=== PATIENT | male | born 1960 | race Caucasian/White ===

== ENCOUNTER 2018-06-09 18:39 | Inpatient (IN) | payer OTHER ==
--- NOTE | 2018-06-09 20:00 | EDM.PDOC ---
ED HPI GENERAL MEDICAL PROBLEM - General Chief Complaint: Lower Extremity Injury/Pain Stated Complaint: right hip pain Time Seen by Provider: 06/09/18 19:05 Source of Information: Reports: Patient History Limitations: Reports: No Limitations - History of Present Illness INITIAL COMMENTS - FREE TEXT/NARRATIVE: Pt presents from basic care with pain in right hip Bent over to put on his shoe and felt a snap and increased pain Had fallen about a month ago and was seen in ER then but Xrays negative then No new trauma No other complaints Onset: Today, Sudden Duration: Hour(s):, Constant Location: Reports: Lower Extremity, Right Quality: Reports: Sharp Severity: Moderate Worsens with: Reports: Movement Context: Reports: Activity Associated Symptoms: Reports: No Other Symptoms Treatments FERRULER: Reports: Other (see below) Other Treatments FERRULER: hydrocodone 10 mg, gabapenting 600mg and ibuprofen 400mg. - Related Data Allergies Allergy/AdvReac Type Severity Reaction Status Date / Time levofloxacin [From Levaquin] Allergy Liver Verified 06/09/18 18:46 Problems Home Meds: Home Meds Calcium Carbonate [Antacid Extra Strength] 750 mg PO BID PRN 06/09/18 [History] Cyclobenzaprine HCl 10 mg PO BID PRN 06/09/18 [History] Gabapentin [Neurontin] 300 mg PO TID@00,06,12 06/09/18 [History] Gabapentin [Neurontin] 600 mg PO DAILY@18 06/09/18 [History] Hydrocodone/Acetaminophen [Hydrocodon-Acetaminophn 10-325] 1 tab PO Q6HRRT 06/09 [History] Ibuprofen [Motrin] 400 mg PO DAILY PRN 06/09/18 [History] Lidocaine 5% [Lidoderm 5%] 1 - 2 patch TOP DAILY PRN 06/09/18 [History] Lisinopril 10 mg PO BID 06/09/18 [History] Menthol [[place]] 7.5 mg MM ASDIRECTED PRN 06/09/18 [History] Multivit with Calcium,Iron,Min [Essential Daily] 1 each PO DAILY 06/09/18 [ History] Polyvinyl Alcohol [Liquitears] 1 drop EYEBOTH QID PRN 06/09/18 [History] Pseudoephedrine HCl [Sudafed] 30 mg PO BID PRN 06/09/18 [History] Simvastatin [Zocor] 10 mg PO DAILY 06/09/18 [History] Review of Systems - Review of Systems Review Of Systems: See Below Mouth/Throat: Reports: No Symptoms Respiratory: Reports: No Symptoms Cardiovascular: Reports: No Symptoms GI/Abdominal: Reports: No Symptoms Musculoskeletal: Reports: Joint Pain ED EXAM, GENERAL - Physical Exam Exam: See Below Exam Limited By: No Limitations General Appearance: Alert, Moderate Distress Nose: Normal Inspection Throat/Mouth: Normal Inspection Head: Atraumatic Neck: Supple Respiratory/Chest: Lungs Clear, Chest Non-Tender Cardiovascular: Regular Rate, Rhythm GI/Abdominal: Soft, Non-Tender Extremities: Other (pain in right hip with palpation or movement) Neurological: Alert, Oriented Psychiatric: Normal Affect, Normal Mood Skin Exam: Intact Course - Vital Signs Last Recorded V/S: Last Vital Signs Temp 37.2 C 06/09/18 18:45 Pulse 84 06/09/18 18:45 Resp 20 06/09/18 18:45 BP 139/83 06/09/18 18:45 Pulse Ox 95 06/09/18 18:45 - Orders/Labs/Meds Orders: Active Orders 24 hr Category Date Time Status Hip Min 2V or 3V w Pelvis Rt [CR] Stat Exams 06/09/18 19:05 Taken - Re-Assessments/Exams Free Text/Narrative Re-Assessment/Exam: 06/09/18 20:02 Xray with non-displaced femoral neck fracture on right D/W [facility] Unable to transfer due to weather Will admit Departure - Departure Time of Disposition: 20:15 Disposition: Admitted As Inpatient 64 Clinical Impression: Fracture of neck of femur, hip - Discharge Information *PRESCRIPTION DRUG MONITORING PROGRAM REVIEWED*: Not Applicable *COPY OF PRESCRIPTION DRUG MONITORING REPORT IN PATIENT KYLE: Not Applicable Referrals: Sheets-Bettye Torrez MD [Primary Care Provider] - - Problem List & Annotations (1) Closed right hip fracture SNOMED Code(s): 685379078 Code(s): S72.001A - FRACTURE OF UNSP PART OF NECK OF RIGHT FEMUR, INIT Status: Acute Onset Date: ~06/09/18 Qualifiers: Encounter type: initial encounter Qualified Code(s): S72.001A - Fracture of unspecified part of neck of right femur, initial encounter for closed fracture - Problem List Review Problem List Initiated/Reviewed/Updated: Yes - My Orders Last 24 Hours: My Active Orders 06/09/18 19:05 Hip Min 2V or 3V w Pelvis Rt [CR] Stat - Assessment/Plan Admission H&P: Please use this note as an admission H&P Last 24 Hours: My Active Orders 06/09/18 19:05 Hip Min 2V or 3V w Pelvis Rt [CR] Stat Assessment:: Right hip fracture Plan: Admit to acute
[2018-06-09] MEDS ORDERED: Ondansetron 4 MG Tab.DIS PO PRN (20:13)
[2018-06-09] MEDS ORDERED: Lidocaine 5% 700 MG Patch TOP PRN (20:21)
[2018-06-09] MEDS ORDERED: Aluminum Hydroxide/Magnesium Hydroxide/Simethicone 355 ML Bottle PO PRN (20:21)
[2018-06-09] MEDS ORDERED: Cyclobenzaprine 10 MG Tab PO PRN (20:21)
[2018-06-09] MEDS ORDERED: Polyvinyl Alcohol 1.4% Ophth Soln 15 ML Bottle EYEBOTH PRN (20:21)
[2018-06-09] MEDS ORDERED: Bisacodyl 5 MG Tab PO PRN (20:21)
[2018-06-09] MEDS ORDERED: Calcium Carbonate 750 MG Tab.Chew PO PRN (20:21)
[2018-06-09] MEDS: Nicotine 21 MG/24 Hr Patch TRDERM SCH (21:37)
[2018-06-09] MEDS: Morphine 2 MG/ML Syringe IVPUSH PRN (21:38)
[2018-06-09] MEDS: Sodium Chloride 0.9% 10 ML Syringe FLUSH PRN (21:49)
[2018-06-10] MEDS: Gabapentin 300 MG Cap PO SCH ×2 (00:09→06:40)
[2018-06-10] MEDS: Acetaminophen/HYDROcodone 325-10 MG Tab PO SCH ×2 (00:09→06:39)
[2018-06-10 03:38] LABS: CHLORIDE,CL 101 mmol/L (98-107); SODIUM,NA 139 mmol/L (136-145)
[2018-06-10] MEDS: Morphine 2 MG/ML Syringe IVPUSH PRN ×2 (04:13→11:42)
[2018-06-10] MEDS: Sodium Chloride 0.9% 10 ML Syringe FLUSH PRN (04:13)
[2018-06-10] MEDS ORDERED: Simvastatin 10 MG Tab PO SCH (08:00)
[2018-06-10] MEDS ORDERED: Metoprolol Tartrate 25 MG Tab PO SCH (08:00)
[2018-06-10] MEDS ORDERED: Lisinopril 10 MG Tab PO SCH (08:00)
[2018-06-10] MEDS ORDERED: Multivitamins with Iron and Minerals Tab.Chew PO SCH (08:00)
[2018-06-10] MEDS: Nicotine 21 MG/24 Hr Patch TRDERM SCH (08:08)
[2018-06-10] MEDS ORDERED: Lactated Ringers 1,000 ML IV SCH (15:30)
[2018-06-10] MEDS ORDERED: Gabapentin 300 MG Cap PO SCH (18:00)
--- NOTE | 2018-06-10 18:22 | PCM.PN ---
- General Info Date of Service: 06/10/18 Functional Status: Reports: Pain Controlled - Review of Systems General: Reports: No Symptoms HEENT: Reports: No Symptoms Pulmonary: Reports: No Symptoms Cardiovascular: Reports: No Symptoms Gastrointestinal: Reports: No Symptoms Genitourinary: Reports: No Symptoms Musculoskeletal: Reports: Joint Pain (right hip) Skin: Reports: No Symptoms Neurological: Reports: Tingling (right leg) Psychiatric: Reports: No Symptoms - Patient Data Vitals - Most Recent: Last Vital Signs Temp 97.8 F 06/10/18 14:00 Pulse 74 06/10/18 14:00 Resp 16 06/10/18 14:00 BP 117/77 06/10/18 14:00 Pulse Ox 94 L 06/10/18 14:00 Weight - Most Recent: 251 lb 6.395 oz I&O - Last 24 Hours: Intake & Output 06/10/18 06/10/18 06/10/18 06:59 14:59 22:59 Intake Total 600 Output Total 1250 600 Balance -1250 0 Lab Results Last 24 Hours: Laboratory Results - last 24 hr 06/10/18 06/10/18 06/10/18 Range/Units 03:15 03:15 03:15 WBC 11.0 H (4.0-10.2) K/uL RBC 4.69 (4.33-5.41) M/uL Hgb 15.1 (13.1-16.8) g/dL Hct 44.4 (39.0-49.0) % MCV 94.7 (84.0-98.0) fL MCH 32.2 (28.2-33.3) pg MCHC 34.0 (31.7-36.0) g/dL RDW 12.4 (11.2-14.1) % Plt Count 216 (150-350) K/uL Neut % (Auto) 62.0 (45.0-80.0) % Lymph % (Auto) 22.7 (10.0-50.0) % [place] % (Auto) 13.3 (2.0-14.0) % Eos % (Auto) 1.6 (0.0-5.0) % Baso % (Auto) 0.4 (0.0-2.0) % Neut # (Auto) 6.82 (1.40-7.00) K/uL Lymph # (Auto) 2.49 (0.50-3.50) K/uL [place] # (Auto) 1.46 H (0.00-1.00) K/uL Eos # (Auto) 0.18 (0.00-0.50) K/uL Baso # (Auto) 0.04 (0.00-0.20) K/uL PT 10.8 (9.5-12.0) SEC INR 1.0 Sodium 139 (136-145) mmol/L Potassium 4.6 (3.5-5.1) mmol/L Chloride 101 (98-107) mmol/L Carbon Dioxide 31.7 (21.0-32.0) mmol/L BUN 19 H (7-18) mg/dL Creatinine 0.73 (0.51-1.17) mg/dL Est Cr Clr Drug Dosing 119.59 mL/min Estimated GFR (MDRD) > 60 mL/min Glucose 113 H (74-106) mg/dL Calcium 8.8 (8.5-10.1) mg/dL Total Bilirubin 0.5 (0.2-1.0) mg/dL AST 17 (15-37) U/L ALT 48 (12-78) U/L Alkaline Phosphatase 104 (46-116) IU/L Total Protein 6.3 L (6.4-8.2) g/dL Albumin 3.5 (3.4-5.0) g/dL Med Orders - Current: Current Medications Discontinued Medications Hydrocodone Bitart/Acetaminophen ([place] 325-10 Mg) 1 tab PO Q6H [facility] Last Admin: 06/10/18 06:39 Dose: 1 tab Al Hydroxide/Mg Hydroxide (Maalox Advanced) 15 - 20 ml PO Q6H PRN PRN Reason: Heartburn Artificial Tears (Liquitears 1.4% Ophth Soln) 0 ml EYEBOTH QID PRN PRN Reason: Dry Eyes Bisacodyl (Dulcolax) 1 - 2 mg PO DAILY PRN PRN Reason: Constipation Calcium Carbonate/Glycine (Tums Extra Strength) 750 mg PO BID PRN PRN Reason: Heartburn Cyclobenzaprine HCl (Flexeril) 10 mg PO BID PRN PRN Reason: Muscle Spasm Last Admin: 06/10/18 00:08 Dose: 10 mg Gabapentin (Neurontin) 300 mg PO TID@00,06,12 [facility] Last Admin: 06/10/18 06:40 Dose: 300 mg Gabapentin (Neurontin) 600 mg PO DAILY@18 [facility] Lactated Ringer's (Ringers, Lactated) 1,000 mls @ 100 mls/hr IV ASDIRECTED [facility] Last Admin: 06/10/18 15:30 Dose: 100 mls/hr Lidocaine (Lidoderm 5%) 700 mg TOP DAILY PRN PRN Reason: Pain Lisinopril (Prinivil) 10 mg PO BID [facility] Last Admin: 06/10/18 08:06 Dose: 10 mg Metoprolol Tartrate (Lopressor) 25 mg PO Q12HR [facility] Last Admin: 06/10/18 08:07 Dose: 25 mg Morphine Sulfate (Morphine) 2 mg IVPUSH Q2H PRN PRN Reason: Pain (severe 7-10) Last Admin: 06/10/18 11:42 Dose: 2 mg Multivitamins/Folic Acid/Vitamin C (Cerovite Jr) 1 each PO DAILY [facility] Last Admin: 06/10/18 08:07 Dose: 1 each Nicotine (Habitrol) 21 mg TRDERM DAILY [facility] Last Admin: 06/10/18 08:08 Dose: 21 mg Ondansetron HCl (Zofran Odt) 8 mg PO Q6H PRN PRN Reason: Nausea/Vomiting Last Admin: 06/09/18 21:37 Dose: 8 mg Senna/Docusate Sodium (Senna Plus) 1 - 2 tab PO DAILY PRN PRN Reason: Constipation Simvastatin (Zocor) 10 mg PO DAILY [facility] Last Admin: 06/10/18 08:06 Dose: 10 mg Sodium Chloride (Saline Flush) 10 ml FLUSH ASDIRECTED PRN PRN Reason: Keep Vein Open Last Admin: 06/10/18 04:13 Dose: 10 ml Sodium Chloride (Saline Flush) 10 ml FLUSH Q12HR [facility] Last Admin: 06/10/18 11:42 Dose: 10 ml - Exam General: Alert, No Acute Distress HEENT: Mucous Membr. Moist/[place] Neck: Trachea Midline, No JVD Lungs: Normal Respiratory Effort, Decreased Breath Sounds Cardiovascular: Regular Rate, Regular Rhythm GI/Abdominal Exam: Soft, Non-Tender, No Distention (Male) Exam: Deferred Back Exam: Normal Inspection Extremities: No Pedal Edema, Leg Pain (right hip and right thigh) Skin: Warm, Dry, Intact Neurological: No New Focal Deficit Psy/Mental Status: Alert, Normal Affect, Normal Mood - Problem List & Annotations (1) Fracture of neck of femur, hip SNOMED Code(s): 6340710 Code(s): S72.009A - FRACTURE OF UNSP PART OF NECK OF UNSP FEMUR, INIT Status: Acute (2) Closed right hip fracture SNOMED Code(s): 110020090 Code(s): S72.001A - FRACTURE OF UNSP PART OF NECK OF RIGHT FEMUR, INIT Status: Acute Onset Date: ~06/09/18 Qualifiers: Encounter type: initial encounter Qualified Code(s): S72.001A - Fracture of unspecified part of neck of right femur, initial encounter for closed fracture (3) Tobacco abuse SNOMED Code(s): 701745801 Code(s): Z72.0 - TOBACCO USE Status: Acute Priority: High (4) Hypertension SNOMED Code(s): 22268952 Code(s): I10 - ESSENTIAL (PRIMARY) HYPERTENSION Status: Acute Qualifiers: Hypertension type: essential hypertension Qualified Code(s): I10 - Essential (primary) hypertension (5) Neuropathy SNOMED Code(s): 124073729 Code(s): G62.9 - POLYNEUROPATHY, UNSPECIFIED Status: Acute Priority: Low (6) Hyperlipemia SNOMED Code(s): 41771817 Code(s): E78.5 - HYPERLIPIDEMIA, UNSPECIFIED Status: Acute Qualifiers: Hyperlipidemia type: other hyperlipidemia Qualified Code(s): E78.49 - Other hyperlipidemia; E78.4 - Other hyperlipidemia - Problem List Review Problem List Initiated/Reviewed/Updated: Yes - My Orders Last 24 Hours: My Active Orders 06/10/18 15:15 Ready for Discharge [RC] PER UNIT ROUTINE - Plan Plan:: 06/10/18 Merlyn Torrez MD Call from nurse at ~10:45. [facility] personnel called to state they would not accept Mr. Piña to the [facility] today because they do not have emergency orthopedic services today. ~11:05 call to [facility]. She will call me back when she has hospitalist on the line. ~11:21 [facility] call and talked to Dr. Hayes who agrees to accept the patient. [facility] will call back and talk to nurses station when a bed is available.
[2018-06-10] MEDS ORDERED: Sodium Chloride 0.9% 10 ML Syringe FLUSH SCH (20:00)
--- NOTE | 2018-06-10 22:53 | PCM.DCSUM1 ---
Discharge Summary - Hospital Course Diagnosis: Stroke: No - Discharge Data Discharge Date: 06/10/18 Discharge Disposition: DC/Tfer to Acute Hospital 02 Condition: Good - Discharge Diagnosis/Problem(s) (1) Fracture of neck of femur, hip SNOMED Code(s): 6768389 ICD Code: S72.009A - FRACTURE OF UNSP PART OF NECK OF UNSP FEMUR, INIT Status: Acute (2) Closed right hip fracture SNOMED Code(s): 672882267 ICD Code: S72.001A - FRACTURE OF UNSP PART OF NECK OF RIGHT FEMUR, INIT Status: Acute Onset Date: ~06/09/18 Qualifiers: Encounter type: initial encounter Qualified Code(s): S72.001A - Fracture of unspecified part of neck of right femur, initial encounter for closed fracture (3) Tobacco abuse SNOMED Code(s): 786610494 ICD Code: Z72.0 - TOBACCO USE Status: Acute Priority: High (4) Hypertension SNOMED Code(s): 92088358 ICD Code: I10 - ESSENTIAL (PRIMARY) HYPERTENSION Status: Acute Qualifiers: Hypertension type: essential hypertension Qualified Code(s): I10 - Essential (primary) hypertension (5) Neuropathy SNOMED Code(s): 881453025 ICD Code: G62.9 - POLYNEUROPATHY, UNSPECIFIED Status: Acute Priority: Low (6) Hyperlipemia SNOMED Code(s): 73041077 ICD Code: E78.5 - HYPERLIPIDEMIA, UNSPECIFIED Status: Acute Qualifiers: Hyperlipidemia type: other hyperlipidemia Qualified Code(s): E78.49 - Other hyperlipidemia; E78.4 - Other hyperlipidemia - Patient Instructions Diet: NPO Activity: Bedrest, May Use Bathroom, Non Weight Bearing Driving: Do Not Drive Showering/Bathing: May Shower Other/Special Instructions: He has been accepted to [facility]. - Discharge Plan *PRESCRIPTION DRUG MONITORING PROGRAM REVIEWED*: Not Applicable *COPY OF PRESCRIPTION DRUG MONITORING REPORT IN PATIENT KYLE: Not Applicable Home Medications: Home Meds Bisacodyl 10 mg RC DAILY PRN 06/09/18 [History] Bisacodyl [Correctol] 1 - 2 tab PO DAILY PRN 06/09/18 [History] Calcium Carbonate [Antacid Extra Strength] 750 mg PO BID PRN 06/09/18 [History] Cyclobenzaprine HCl 10 mg PO BID PRN 06/09/18 [History] Gabapentin [Neurontin] 300 mg PO TID@00,06,12 06/09/18 [History] Gabapentin [Neurontin] 600 mg PO DAILY@18 06/09/18 [History] Hydrocodone/Acetaminophen [Hydrocodon-Acetaminophn 10-325] 1 tab PO Q6HRRT 06/09 [History] Ibuprofen 400 mg PO BID@0600,1800 06/09/18 [History] Ibuprofen [Motrin] 400 mg PO DAILY PRN 06/09/18 [History] Lidocaine 5% [Lidoderm 5%] 1 - 2 patch TOP DAILY PRN 06/09/18 [History] Lisinopril 10 mg PO BID@0600,1800 06/09/18 [History] Mag Hydrox/Aluminum Hyd/Simeth [Antacid Liquid] 15 - 20 ml PO Q6H PRN 06/09/18 [ History] Menthol [Pace] 7.5 mg MM ASDIRECTED PRN 06/09/18 [History] Metoprolol Tartrate [Lopressor] 25 mg PO BID@0600,1800 06/09/18 [History] Multivit with Calcium,Iron,Min [Essential Daily] 1 each PO DAILY@0600 06/09/18 [ History] Polyvinyl Alcohol [Liquitears] 1 drop EYEBOTH QID PRN 06/09/18 [History] Pseudoephedrine HCl [Sudafed] 30 mg PO BID PRN 06/09/18 [History] Sennosides/Docusate Sodium [Dok Plus Tablet] 1 - 2 each PO DAILY PRN 06/09/18 [ History] Simvastatin [Zocor] 10 mg PO DAILY@1800 06/09/18 [History] Oxygen Therapy Mode: Room Air Patient Handouts: Simple Pelvic Fracture, Adult Forms: ED Department Discharge Referrals: Sheets-Bettye Torrez MD [Primary Care Provider] - - Discharge Summary/Plan Comment DC Time >30 min.: No Discharge Summary/Plan Comment: See progress note summary. - Patient Data Vitals - Most Recent: Last Vital Signs Temp 97.8 F 06/10/18 14:00 Pulse 74 06/10/18 14:00 Resp 16 06/10/18 14:00 BP 117/77 06/10/18 14:00 Pulse Ox 94 L 06/10/18 14:00 Weight - Most Recent: 251 lb 6.395 oz I&O - Last 24 hours: Intake & Output 06/10/18 06/10/18 06/10/18 06:59 14:59 22:59 Intake Total 600 Output Total 1250 600 Balance -1250 0 Lab Results - Last 24 hrs: Laboratory Results - last 24 hr 06/10/18 06/10/18 06/10/18 Range/Units 03:15 03:15 03:15 WBC 11.0 H (4.0-10.2) K/uL RBC 4.69 (4.33-5.41) M/uL Hgb 15.1 (13.1-16.8) g/dL Hct 44.4 (39.0-49.0) % MCV 94.7 (84.0-98.0) fL MCH 32.2 (28.2-33.3) pg MCHC 34.0 (31.7-36.0) g/dL RDW 12.4 (11.2-14.1) % Plt Count 216 (150-350) K/uL Neut % (Auto) 62.0 (45.0-80.0) % Lymph % (Auto) 22.7 (10.0-50.0) % [place] % (Auto) 13.3 (2.0-14.0) % Eos % (Auto) 1.6 (0.0-5.0) % Baso % (Auto) 0.4 (0.0-2.0) % Neut # (Auto) 6.82 (1.40-7.00) K/uL Lymph # (Auto) 2.49 (0.50-3.50) K/uL [place] # (Auto) 1.46 H (0.00-1.00) K/uL Eos # (Auto) 0.18 (0.00-0.50) K/uL Baso # (Auto) 0.04 (0.00-0.20) K/uL PT 10.8 (9.5-12.0) SEC INR 1.0 Sodium 139 (136-145) mmol/L Potassium 4.6 (3.5-5.1) mmol/L Chloride 101 (98-107) mmol/L Carbon Dioxide 31.7 (21.0-32.0) mmol/L BUN 19 H (7-18) mg/dL Creatinine 0.73 (0.51-1.17) mg/dL Est Cr Clr Drug Dosing 119.59 mL/min Estimated GFR (MDRD) > 60 mL/min Glucose 113 H (74-106) mg/dL Calcium 8.8 (8.5-10.1) mg/dL Total Bilirubin 0.5 (0.2-1.0) mg/dL AST 17 (15-37) U/L ALT 48 (12-78) U/L Alkaline Phosphatase 104 (46-116) IU/L Total Protein 6.3 L (6.4-8.2) g/dL Albumin 3.5 (3.4-5.0) g/dL Med Orders - Current: Current Medications Discontinued Medications Hydrocodone Bitart/Acetaminophen ([place] 325-10 Mg) 1 tab PO Q6H [facility] Last Admin: 06/10/18 06:39 Dose: 1 tab Al Hydroxide/Mg Hydroxide (Maalox Advanced) 15 - 20 ml PO Q6H PRN PRN Reason: Heartburn Artificial Tears (Liquitears 1.4% Ophth Soln) 0 ml EYEBOTH QID PRN PRN Reason: Dry Eyes Bisacodyl (Dulcolax) 1 - 2 mg PO DAILY PRN PRN Reason: Constipation Calcium Carbonate/Glycine (Tums Extra Strength) 750 mg PO BID PRN PRN Reason: Heartburn Cyclobenzaprine HCl (Flexeril) 10 mg PO BID PRN PRN Reason: Muscle Spasm Last Admin: 06/10/18 00:08 Dose: 10 mg Gabapentin (Neurontin) 300 mg PO TID@00,06,12 [facility] Last Admin: 06/10/18 06:40 Dose: 300 mg Gabapentin (Neurontin) 600 mg PO DAILY@18 [facility] Lactated Ringer's (Ringers, Lactated) 1,000 mls @ 100 mls/hr IV ASDIRECTED [facility] Last Admin: 06/10/18 15:30 Dose: 100 mls/hr Lidocaine (Lidoderm 5%) 700 mg TOP DAILY PRN PRN Reason: Pain Lisinopril (Prinivil) 10 mg PO BID [facility] Last Admin: 06/10/18 08:06 Dose: 10 mg Metoprolol Tartrate (Lopressor) 25 mg PO Q12HR [facility] Last Admin: 06/10/18 08:07 Dose: 25 mg Morphine Sulfate (Morphine) 2 mg IVPUSH Q2H PRN PRN Reason: Pain (severe 7-10) Last Admin: 06/10/18 11:42 Dose: 2 mg Multivitamins/Folic Acid/Vitamin C (Cerovite Jr) 1 each PO DAILY [facility] Last Admin: 06/10/18 08:07 Dose: 1 each Nicotine (Habitrol) 21 mg TRDERM DAILY [facility] Last Admin: 06/10/18 08:08 Dose: 21 mg Ondansetron HCl (Zofran Odt) 8 mg PO Q6H PRN PRN Reason: Nausea/Vomiting Last Admin: 06/09/18 21:37 Dose: 8 mg Senna/Docusate Sodium (Senna Plus) 1 - 2 tab PO DAILY PRN PRN Reason: Constipation Simvastatin (Zocor) 10 mg PO DAILY [facility] Last Admin: 06/10/18 08:06 Dose: 10 mg Sodium Chloride (Saline Flush) 10 ml FLUSH ASDIRECTED PRN PRN Reason: Keep Vein Open Last Admin: 06/10/18 04:13 Dose: 10 ml Sodium Chloride (Saline Flush) 10 ml FLUSH Q12HR [facility] Last Admin: 06/10/18 11:42 Dose: 10 ml
== END 2018-06-10 16:07 | DRG 536 ==
LOC: LL.ED 18:39 → LL.MS 20:05 → UNDOADMIN 20:05 → LL.MS 20:13
PROVIDERS: ADMIT Family Medicine; ATTEND Family Medicine
DX: S72.001A Fracture of unspecified part of neck of right femur, initial encounter for closed fracture (principal); I10 Essential (primary) hypertension; E78.49 Other hyperlipidemia; Z66 Do not resuscitate; G62.9 Polyneuropathy, unspecified; Z88.1 Allergy status to other antibiotic agents; Z79.899 Other long term (current) drug therapy; Z72.0 Tobacco use; W18.30XA Fall on same level, unspecified, initial encounter
CPT/HCPCS: 36415; 80053; 85025; 85610; 99285-25; A9270-GY; J2270; J7120

== ENCOUNTER 2020-04-06 16:31 | Emergency (ER) | payer OTHER ==
[2020-04-06 16:59] LABS: CHLORIDE,CL 100 mmol/L (98-107); SODIUM,NA 141 mmol/L (136-145)
[2020-04-06] MEDS ORDERED: cefTRIAXone 1 GM Vial IM ONE (17:21)
[2020-04-06] MEDS ORDERED: methylPREDNISolone Sodium Succinate 125 MG/2 ML SDV IM ONE (17:21)
--- NOTE | 2020-04-06 17:31 | EDM.PDOC ---
ED HPI GENERAL MEDICAL PROBLEM - General Chief Complaint: Respiratory Problem Stated Complaint: Cough, Shortness of breath Time Seen by Provider: 04/06/20 16:32 Source of Information: Reports: Patient, [facility] Records - History of Present Illness INITIAL COMMENTS - FREE TEXT/NARRATIVE: Pt with increased SOB for past week No fever Negative Covid test yesterday No chest pain Occasional cough RA sats at [facility] 87% EMS states sats 93% on 2 L oxygen 97% on 4 L Onset: Gradual Duration: Day(s):, Getting Worse Location: Reports: Chest - Related Data Allergies Allergy/AdvReac Type Severity Reaction Status Date / Time levofloxacin [From Levaquin] Allergy Liver Verified 06/09/18 18:46 Problems Home Meds: Home Meds Calcium Carbonate [Antacid Extra Strength] 750 mg PO BID PRN 06/09/18 [History] Cyclobenzaprine HCl 10 mg PO BID PRN 06/09/18 [History] Gabapentin [Neurontin] 300 mg PO TID@00,06,12 06/09/18 [History] Gabapentin [Neurontin] 600 mg PO DAILY@18 06/09/18 [History] Hydrocodone/Acetaminophen [Hydrocodon-Acetaminophn 10-325] 1 tab PO Q6HRRT 06/09/18 [History] Ibuprofen 400 mg PO BID@0600,1800 06/09/18 [History] Lidocaine 5% [Lidoderm 5%] 1 - 2 patch TOP DAILY PRN 06/09/18 [History] Mag Hydrox/Aluminum Hyd/Simeth [Antacid Liquid] 15 - 20 ml PO Q6H PRN 06/09/18 [History] Metoprolol Tartrate [Lopressor] 25 mg PO BID@0600,1800 06/09/18 [History] Multivit with Calcium,Iron,Min [Essential Daily] 1 each PO DAILY@0600 06/09/18 [History] Polyvinyl Alcohol [Liquitears] 1 drop EYEBOTH QID PRN 06/09/18 [History] Pseudoephedrine HCl [Sudafed] 30 mg PO BID PRN 06/09/18 [History] Sennosides/Docusate Sodium [Dok Plus Tablet] 1 - 2 each PO DAILY PRN 06/09/18 [History] Simvastatin [Zocor] 10 mg PO DAILY@1800 06/09/18 [History] Calcium Carbonate [Calcium] 1 tab PO DAILY@0600 04/06/20 [History] Cholecalciferol (Vitamin D3) [Vitamin D] 1,000 unit PO DAILY@0600 04/06/20 [History] Furosemide [Lasix] 40 mg PO DAILY@0604/06/20 [History] Hydrocodone/Acetaminophen [Hydrocodone-Acetamin 10-325 mg] 1 tab PO QID@00,06,12,18 04/06/20 [History] Menthol [[place]] 1 tima PO ASDIRECTED 04/06/20 [History] lisinopriL [Lisinopril] 2.5 mg PO DAILY@0604/06/20 [History] metFORMIN [Glucophage XR] 500 mg PO DAILY@1200 04/06/20 [History] polyethylene glycoL 3350 [MiraLAX] 17 gm PO DAILY PRN 04/06/20 [History] Past Medical History HEENT History: Reports: Cataract, Impaired Vision, Other (See Below) Other HEENT History: dry eyes Cardiovascular History: Reports: High Cholesterol, Hypertension Gastrointestinal History: Reports: Chronic Constipation, GERD Genitourinary History: Reports: Other (See Below) Other Genitourinary History: urinary urgency Musculoskeletal History: Reports: Back Pain, Chronic, Osteoarthritis, Other (See Below) Other Musculoskeletal History: Spondylosis Neurological History: Reports: Neuropathy, Peripheral Psychiatric History: Reports: Depression Endocrine/Metabolic History: Reports: Obesity/BMI 30+ Social & Family History - Caffeine Use Caffeine Use: Reports: Coffee ED ROS GENERAL - Review of Systems Review Of Systems: See Below Constitutional: Reports: No Symptoms HEENT: Reports: No Symptoms Respiratory: Reports: Shortness of Breath, Cough Cardiovascular: Reports: No Symptoms GI/Abdominal: Reports: No Symptoms ED EXAM, GENERAL - Physical Exam Exam: See Below Exam Limited By: No Limitations General Appearance: Alert, WD/WN, Mild Distress Throat/Mouth: Normal Oropharynx Neck: Supple Respiratory/Chest: Decreased Breath Sounds, Wheezing Cardiovascular: Regular Rate, Rhythm GI/Abdominal: Soft, Non-Tender Course - Orders/Labs/Meds Orders: Active Orders 24 hr Category Date Time Status Chest 1V Frontal [CR] Stat Exams 04/06/20 16:33 Taken Labs: Laboratory Tests 04/06/20 04/06/20 04/06/20 Range/Units 16:35 16:35 16:35 WBC 11.4 H (4.0-10.2) K/uL RBC 5.35 (4.33-5.41) M/uL Hgb 16.6 (13.1-16.8) g/dL Hct 49.4 H (39.0-49.0) % MCV 92.3 (84.0-98.0) fL MCH 31.0 (28.2-33.3) pg MCHC 33.6 (31.7-36.0) g/dL RDW 13.5 (11.2-14.1) % Plt Count 170 (150-350) K/uL Neut % (Auto) 73.7 (45.0-80.0) % Lymph % (Auto) 14.2 (10.0-50.0) % [place] % (Auto) 10.6 (2.0-14.0) % Eos % (Auto) 1.2 (0.0-5.0) % Baso % (Auto) 0.3 (0.0-2.0) % Neut # (Auto) 8.38 H (1.40-7.00) K/uL Lymph # (Auto) 1.61 (0.50-3.50) K/uL [place] # (Auto) 1.20 H (0.00-1.00) K/uL Eos # (Auto) 0.14 (0.00-0.50) K/uL Baso # (Auto) 0.03 (0.00-0.20) K/uL Sodium 141 (136-145) mmol/L Potassium 4.2 (3.5-5.1) mmol/L Chloride 100 (98-107) mmol/L Carbon Dioxide 37.2 H (21.0-32.0) mmol/L BUN 16 (7-18) mg/dL Creatinine 0.75 (0.51-1.17) mg/dL Est Cr Clr Drug Dosing TNP Estimated GFR (MDRD) > 60 mL/min Glucose 165 H (74-106) mg/dL Lactic Acid 0.9 (0.4-2.0) mmol/L Calcium 8.8 (8.5-10.1) mg/dL Total Bilirubin 0.3 (0.2-1.0) mg/dL AST 34 (15-37) U/L ALT 59 (12-78) U/L Alkaline Phosphatase 96 (46-116) IU/L Total Protein 6.8 (6.4-8.2) g/dL Albumin 3.7 (3.4-5.0) g/dL Meds: Medications Discontinued Medications Generic Name Dose Route Start Last Admin Trade Name Skyq PRN Reason Stop Dose Admin Ceftriaxone Sodium 1 gm 04/06/20 17:21 Rocephin IM 04/06/20 17:22 ONETIME ONE Methylprednisolone Sodium Succinate 125 mg 04/06/20 17:21 Solu-Medrol IM 04/06/20 17:22 ONETIME ONE - Re-Assessments/Exams Free Text/Narrative Re-Assessment/Exam: 04/06/20 17:29 Pt sats on 2 L oxygen 94% 98% on 4 L States he feels better after HHN per EMS CXR with increased marking bilateral bases Possible early pneumonia Rocephin 1 gm IM and Solu-medrol 125 mg IM given in ER Discharged with Zithromax one pill daily and Albuterol inhaler 2 puffs every 4 hours as needed Oxygen as needed Departure - Departure Time of Disposition: 17:30 Disposition: DC/Tfer to SNF 03 Clinical Impression: SOB (shortness of breath) - Discharge Information *PRESCRIPTION DRUG MONITORING PROGRAM REVIEWED*: Not Applicable *COPY OF PRESCRIPTION DRUG MONITORING REPORT IN PATIENT KYLE: Not Applicable Instructions: Shortness of Breath, Adult, [id number] Referrals: Karla Segundo PA [Primary Care Provider] - Forms: ED Department Discharge Additional Instructions: Zithromax One pill a day Albuterol Inhaler 2 puffs every 4 hours as needed Oxygen as needed Follow up in clinic - My Orders Last 24 Hours: My Active Orders 04/06/20 16:33 Chest 1V Frontal [CR] Stat - Assessment/Plan Last 24 Hours: My Active Orders 04/06/20 16:33 Chest 1V Frontal [CR] Stat
== END 2020-04-06 18:30 ==
LOC: LL.ED 16:31
DX: R06.02 Shortness of breath (principal); R05 Cough; I10 Essential (primary) hypertension; E78.00 Pure hypercholesterolemia, unspecified; E66.9 Obesity, unspecified; Z68.41 Body mass index [BMI] 40.0-44.9, adult; Z88.1 Allergy status to other antibiotic agents; Z79.899 Other long term (current) drug therapy
CPT/HCPCS: 36415; 71045; 80053; 83605; 85025; 96372; 99283; 99285-25; J0696; J2930

== ENCOUNTER 2020-10-18 18:48 | Emergency (ER) | payer OTHER ==
[2020-10-18] MEDS ORDERED: Acetaminophen 325 MG Tab PO ONE (18:55)
[2020-10-18] MEDS ORDERED: Sodium Chloride 0.9% 10 ML Syringe FLUSH PRN (18:59)
[2020-10-18] MEDS ORDERED: cefTRIAXone 1 GM in Sodium Chloride 0.9% 100 ML IV ONE (19:28)
[2020-10-18] MEDS ORDERED: Azithromycin 500 MG in Sodium Chloride 0.9% 250 ML IV ONE (19:29)
[2020-10-18] MEDS ORDERED: Albuterol/Ipratropium 3.0-0.5 MG/3 ML Neb Soln NEB ONE (19:29)
[2020-10-18 19:45] LABS: ANION GAP 11.7 meq/L (7-15)
[2020-10-18] MEDS ORDERED: Sodium Chloride 0.9% 500 ML IV SCH (19:45)
[2020-10-18] MEDS ORDERED: Iopamidol 755 Mg/ML 100 ML Bottle IVPUSH ONE (20:39)
--- NOTE | 2020-10-18 20:46 | EDM.PDOC ---
ED HPI GENERAL MEDICAL PROBLEM - General Chief Complaint: General Stated Complaint: SOB, Cough fever Time Seen by Provider: 10/18/20 18:57 Source of Information: Reports: Patient History Limitations: Reports: No Limitations - History of Present Illness INITIAL COMMENTS - FREE TEXT/NARRATIVE: Patient comes from [facility] with complaint of chills/malaise/not feeling well. Had increased chest congestion/mild cough for several weeks that he blamed on being exposed to heat/humidity followed by environment. Chills started last two days. No obvious fever. More SOB today. Diaphoretic. O2 sats in mid 80s on site. Placed on O2 1.5 liters and sats improved right away to 93-94%. Hx COPD. Denies any other obvious new changes in ROS. Noted to have elevated temp upon arrival to ED. - Related Data Allergies Allergy/AdvReac Type Severity Reaction Status Date / Time levofloxacin [From Levaquin] Allergy Liver Verified 10/18/20 18:51 Problems Home Meds: Home Meds Calcium Carbonate [Antacid Extra Strength] 750 mg PO BID PRN 06/09/18 [History] Cyclobenzaprine HCl 10 mg PO BID PRN 06/09/18 [History] Gabapentin [Neurontin] 300 mg PO BID@00,12 06/09/18 [History] Gabapentin [Neurontin] 600 mg PO TID 06/09/18 [History] Hydrocodone/Acetaminophen [Hydrocodon-Acetaminophn 10-325] 1 tab PO Q4HR PRN [History] Ibuprofen 400 mg PO BID@0600,1800 06/09/18 [History] Lidocaine 5% [Lidoderm 5%] 1 - 2 patch TOP DAILY@0600 06/09/18 [History] Mag Hydrox/Aluminum Hyd/Simeth [Antacid Liquid] 15 - 20 ml PO QID PRN 06/09/18 [History] Metoprolol Tartrate [Lopressor] 25 mg PO BID@0600,1800 06/09/18 [History] Multivit with Calcium,Iron,Min [Essential Daily] 1 each PO DAILY@0600 06/09/18 [History] Polyvinyl Alcohol [Liquitears] 1 drop EYEBOTH QID PRN 06/09/18 [History] Pseudoephedrine HCl [Sudafed] 30 mg PO BID PRN 06/09/18 [History] Sennosides/Docusate Sodium [Dok Plus Tablet] 1 - 2 each PO BID@0600,1800 PRN 06/09/18 [History] Simvastatin [Zocor] 10 mg PO DAILY@1800 06/09/18 [History] Calcium Carbonate [Calcium] 1 tab PO DAILY@0600 04/06/20 [History] Cholecalciferol (Vitamin D3) [Vitamin D] 1,000 unit PO DAILY@0600 04/06/20 [History] Furosemide [Lasix] 80 mg PO DAILY@0600 04/06/20 [History] Hydrocodone/Acetaminophen [Hydrocodone-Acetamin 10-325 mg] 1 tab PO QID@00,06,12,18 04/06/20 [History] Menthol [[place]] 1 tima PO ASDIRECTED 04/06/20 [History] lisinopriL [Lisinopril] 2.5 mg PO DAILY@0600 04/06/20 [History] metFORMIN [Glucophage XR] 1,000 mg PO DAILY@1200 04/06/20 [History] polyethylene glycoL 3350 [MiraLAX] 17 gm PO DAILY PRN 04/06/20 [History] Albuterol [Proventil HFA] 2 puff INH QID 10/18/20 [History] Past Medical History HEENT History: Reports: Cataract, Impaired Vision, Other (See Below) Other HEENT History: dry eyes Cardiovascular History: Reports: High Cholesterol, Hypertension Respiratory History: Reports: COPD Gastrointestinal History: Reports: Chronic Constipation, GERD Genitourinary History: Reports: Other (See Below) Other Genitourinary History: urinary urgency Musculoskeletal History: Reports: Back Pain, Chronic, Osteoarthritis, Other (See Below) Other Musculoskeletal History: Spondylosis Neurological History: Reports: Neuropathy, Peripheral Psychiatric History: Reports: Depression Endocrine/Metabolic History: Reports: Obesity/BMI 30+ Social & Family History - Tobacco Use Tobacco Use Status *Q: Current Every Day Tobacco User Years of Tobacco use: 52 Packs/Tins Daily: 1 - Caffeine Use Caffeine Use: Reports: None - Alcohol Use Alcohol Use History: No - Recreational Drug Use Recreational Drug Use: No ED ROS GENERAL - Review of Systems Review Of Systems: See Below Constitutional: Reports: Fever, Chills, Malaise, Diaphoresis. Denies: Weight Loss, Weight Gain HEENT: Reports: No Symptoms Respiratory: Reports: Shortness of Breath, Wheezing, Cough. Denies: Pleuritic Chest Pain, Sputum, Hemoptysis Cardiovascular: Reports: No Symptoms GI/Abdominal: Reports: No Symptoms : Reports: No Symptoms Musculoskeletal: Reports: Other (no acute changes from baseline) Skin: Reports: No Symptoms Neurological: Denies: Confusion, Headache, Trouble Speaking, Change in Speech Psychiatric: Reports: No Symptoms ED EXAM, GENERAL - Physical Exam Exam: See Below Exam Limited By: No Limitations General Appearance: Alert, Obese, Other (diaphoretic, mild increased respiratory rate) Eye Exam: Bilateral Eye: EOMI, PERRL Ears: Normal External Exam, Hearing Grossly Normal Nose: No: Nasal Deformity, Nasal Swelling, Nasal Drainage Throat/Mouth: Normal Lips, Normal Voice, No Airway Compromise Head: Atraumatic, Normocephalic Neck: Normal Inspection, Supple, Non-Tender, Full Range of Motion Respiratory/Chest: No Accessory Muscle Use, Chest Non-Tender, Decreased Breath Sounds (bilat), Wheezing (bilat). No: Crackles, Rales, Rhonchi, Stridor, Retractions Cardiovascular: No Murmur, Tachycardia GI/Abdominal: Soft (Male) Exam: Deferred Rectal (Males) Exam: Deferred Back Exam: No: CVA Tenderness (L), CVA Tenderness (R), Muscle Spasm, Paraspinal Tenderness, Vertebral Tenderness Extremities: Non-Tender, No Pedal Edema, Normal Capillary Refill Neurological: Alert, Oriented, Normal Cognition, No Motor/Sensory Deficits Psychiatric: Normal Affect, Normal Mood Skin Exam: Warm, Diaphoretic Course - Vital Signs Last Recorded V/S: Last Vital Signs Temp 36.8 C 10/18/20 21:55 Pulse 92 10/18/20 21:55 Resp 23 H 10/18/20 21:55 BP 91/57 L 10/18/20 21:55 Pulse Ox 94 L 10/18/20 21:55 - Orders/Labs/Meds Labs: Laboratory Tests 10/18/20 10/18/20 10/18/20 Range/Units 19:10 19:10 19:10 WBC 9.1 (4.0-10.2) K/uL RBC 4.78 (4.33-5.41) M/uL Hgb 14.7 D (13.1-16.8) g/dL Hct 44.0 (39.0-49.0) % MCV 92.1 (84.0-98.0) fL MCH 30.8 (28.2-33.3) pg MCHC 33.4 (31.7-36.0) g/dL RDW 14.1 (11.2-14.1) % Plt Count 155 (150-350) K/uL Neut % (Auto) 83.8 H (45.0-80.0) % Lymph % (Auto) 7.8 L (10.0-50.0) % [place] % (Auto) 7.8 (2.0-14.0) % Eos % (Auto) 0.3 (0.0-5.0) % Baso % (Auto) 0.3 (0.0-2.0) % Neut # (Auto) 7.58 H (1.40-7.00) K/uL Lymph # (Auto) 0.71 (0.50-3.50) K/uL [place] # (Auto) 0.71 (0.00-1.00) K/uL Eos # (Auto) 0.03 (0.00-0.50) K/uL Baso # (Auto) 0.03 (0.00-0.20) K/uL D-Dimer, Quantitative 3090 H (0-400) ng/mL Sodium 135 L (136-145) mmol/L Potassium 4.2 (3.5-5.1) mmol/L Chloride 99 (98-107) mmol/L Carbon Dioxide 28.5 (21.0-32.0) mmol/L Anion Gap 11.7 (7-15) meq/L BUN 24 H (7-18) mg/dL Creatinine 1.29 H (0.51-1.17) mg/dL Est Cr Clr Drug Dosing 61.30 mL/min Estimated GFR (MDRD) 56 mL/min Glucose 176 H (70-99) mg/dL Lactic Acid (0.4-2.0) mmol/L Calcium 8.3 L (8.5-10.1) mg/dL Magnesium 1.8 (1.8-2.4) mg/dL Total Bilirubin 0.7 (0.2-1.0) mg/dL AST 64 H (15-37) U/L ALT 93 H (12-78) U/L Alkaline Phosphatase 105 (46-116) IU/L Troponin I High Sens 32 (<=76) ng/L NT-Pro-B Natriuret Pep 425 H (0-125) pg/mL Total Protein 6.7 (6.4-8.2) g/dL Albumin 2.6 L (3.4-5.0) g/dL SARS-CoV-2 RNA (KELLEE) (NEGATIVE) 10/18/20 10/18/20 Range/Units 19:10 19:30 WBC (4.0-10.2) K/uL RBC (4.33-5.41) M/uL Hgb (13.1-16.8) g/dL Hct (39.0-49.0) % MCV (84.0-98.0) fL MCH (28.2-33.3) pg MCHC (31.7-36.0) g/dL RDW (11.2-14.1) % Plt Count (150-350) K/uL Neut % (Auto) (45.0-80.0) % Lymph % (Auto) (10.0-50.0) % [place] % (Auto) (2.0-14.0) % Eos % (Auto) (0.0-5.0) % Baso % (Auto) (0.0-2.0) % Neut # (Auto) (1.40-7.00) K/uL Lymph # (Auto) (0.50-3.50) K/uL [place] # (Auto) (0.00-1.00) K/uL Eos # (Auto) (0.00-0.50) K/uL Baso # (Auto) (0.00-0.20) K/uL D-Dimer, Quantitative (0-400) ng/mL Sodium (136-145) mmol/L Potassium (3.5-5.1) mmol/L Chloride (98-107) mmol/L Carbon Dioxide (21.0-32.0) mmol/L Anion Gap (7-15) meq/L BUN (7-18) mg/dL Creatinine (0.51-1.17) mg/dL Est Cr Clr Drug Dosing mL/min Estimated GFR (MDRD) mL/min Glucose (70-99) mg/dL Lactic Acid 1.2 (0.4-2.0) mmol/L Calcium (8.5-10.1) mg/dL Magnesium (1.8-2.4) mg/dL Total Bilirubin (0.2-1.0) mg/dL AST (15-37) U/L ALT (12-78) U/L Alkaline Phosphatase (46-116) IU/L Troponin I High Sens (<=76) ng/L NT-Pro-B Natriuret Pep (0-125) pg/mL Total Protein (6.4-8.2) g/dL Albumin (3.4-5.0) g/dL SARS-CoV-2 RNA (KELLEE) Negative (NEGATIVE) Meds: Medications Discontinued Medications Generic Name Dose Route Start Last Admin Trade Name Freq PRN Reason Stop Dose Admin Acetaminophen 650 mg 10/18/20 18:55 10/18/20 19:00 Acetaminophen 325 Mg Tab PO 10/18/20 18:56 650 mg NOW ONE Administration Albuterol/Ipratropium 3 ml 10/18/20 19:29 10/18/20 21:29 Albuterol/Ipratropium 3.0-0.5 Mg/3 Ml Neb Soln NEB 10/18/20 19:30 3 ml ONETIME ONE Administration Ceftriaxone Sodium 1 gm/ 100 mls @ 200 mls/hr 10/18/20 19:28 10/18/20 19:45 Sodium Chloride IV 10/18/20 19:57 200 mls/hr ONETIME ONE Administration Azithromycin 500 mg/ Sodium 250 mls @ 250 mls/hr 10/18/20 19:29 10/18/20 19:54 Chloride IV 10/18/20 20:28 250 mls/hr ONETIME ONE Administration Sodium Chloride 500 mls @ 500 mls/hr 10/18/20 19:45 Normal Saline IV 10/18/20 20:44 ASDIRECTED MARITZA Sodium Chloride 1,000 mls @ 125 mls/hr 10/18/20 21:00 10/18/20 21:29 Normal Saline IV 10/19/20 04:59 125 mls/hr ASDIRECTED MARITZA Administration Iopamidol 100 ml 10/18/20 20:39 10/18/20 21:53 Iopamidol 755 Mg/Ml 100 Ml Bottle IVPUSH 10/18/20 20:40 100 ml ONETIME ONE Administration Sodium Chloride 10 ml 10/18/20 18:59 Sodium Chloride 0.9% 10 Ml Syringe FLUSH ASDIRECTED PRN Keep Vein Open - Re-Assessments/Exams Free Text/Narrative Re-Assessment/Exam: 10/18/20 20:56 Labs ordered. Sepsis rule out initiated including blood cultures. Chest xray showed left upper lobe pneumonia and small left pleural effusion per Radiology. Normal WBC and lactic. DDimer 3000 Some elevation of AST and ALT. Glu 176. ProBNP 425. Creatinine 1.29. IV Rocephin and Zithromax given. BP and heart rate improved. Fever improved after Tylenol. NS ordered and will be continued for additional hydration and to help clear contrast from PE study ordered. Metformin will need to be held due to scan. Call placed and patient discussed with Dr. Keenan from [facility] in [place]. Patient accepted for transfer for further treatment of pneumonia. If CT has not been read at time of transfer will send results to [facility] as soon as they are available. Patient sleeping/resting comfortably at this time. Departure - Departure Time of Disposition: 22:00 Disposition: DC/Tfer to [facility] 43 Condition: Good Clinical Impression: Hypoxemia requiring supplemental oxygen, Elevated d-dimer, Renal insufficiency Left upper lobe pneumonia Qualifiers: Pneumonia type: due to unspecified organism Qualified Code(s): J18.9 - Pneumonia, unspecified organism - Discharge Information Referrals: PCP,Unknown [Primary Care Provider] - Forms: Interfacility Transfer TAMMIE Sepsis Event Note (ED) - Evaluation Sepsis Screening Result: No Definite Risk
[2020-10-18] MEDS ORDERED: Sodium Chloride 0.9% 1,000 ML IV SCH (21:00)
== END 2020-10-18 22:10 ==
LOC: LL.ED 18:48
DX: J18.9 Pneumonia, unspecified organism (principal); E78.00 Pure hypercholesterolemia, unspecified; R09.02 Hypoxemia; R79.1 Abnormal coagulation profile; N28.9 Disorder of kidney and ureter, unspecified; I10 Essential (primary) hypertension; M19.90 Unspecified osteoarthritis, unspecified site; E66.9 Obesity, unspecified; Z68.30 Body mass index [BMI] 30.0-30.9, adult; Z88.1 Allergy status to other antibiotic agents; Z99.81 Dependence on supplemental oxygen; Z79.84 Long term (current) use of oral hypoglycemic drugs; Z20.822 Contact with and (suspected) exposure to COVID-19; Z72.0 Tobacco use; Z79.899 Other long term (current) drug therapy
CPT/HCPCS: 36415; 71046; 71275; 80053; 83605; 83735; 83880; 84484; 85025; 85379; 87040; 94640; 96365; 96367; 99284; 99285-25; A9270-GY; J0456; J0696; J7030; J7050; J7620-GY; Q9967; U0002

== ENCOUNTER 2023-01-28 02:11 | Emergency (ER) | payer OTHER ==
[2023-01-28] MEDS: Acetaminophen/HYDROcodone 325-10 MG Tab PO ONE (02:26)
[2023-01-28] MEDS ORDERED: Take Home: Acetaminophen/HYDROcodone 325-10 MG, 5 Tab Pack PO ONE (03:01)
== END 2023-01-28 03:15 | disposition home or self-care (01) ==
LOC: LL.ED 02:11
DX: F11.90 Opioid use, unspecified, uncomplicated (principal); Z76.0 Encounter for issue of repeat prescription; I10 Essential (primary) hypertension; E78.00 Pure hypercholesterolemia, unspecified; E66.9 Obesity, unspecified; Z88.8 Allergy status to other drugs, medicaments and biological substances; Z79.899 Other long term (current) drug therapy; Z79.84 Long term (current) use of oral hypoglycemic drugs; F17.210 Nicotine dependence, cigarettes, uncomplicated
CPT/HCPCS: 99283; A9270; 99284

== ENCOUNTER 2023-12-04 06:20 | Emergency (ER) | payer OTHER ==
[2023-12-04 07:28] LABS: BASOPHILS ABSOLUTE AUTO 0.04 K/uL (0.00-0.20); BASOPHILS PERCENT AUTO 0.4 % (0.0-2.0); EOSINOPHILS ABSOLUTE AUTO 0.22 K/uL (0.00-0.50); EOSINOPHILS PERCENT AUTO 2.4 % (0.0-5.0); HEMATOCRIT 44.1 % (39.0-49.0); HEMOGLOBIN 16.5 g/dL (13.1-16.8); LYMPHOCYTES ABSOLUTE AUTO 1.81 K/uL (0.50-3.50); LYMPHOCYTES PERCENT AUTO 20.1 % (10.0-50.0); MEAN CORPUSCULAR HEMOGLOBIN 31.7 pg (28.2-33.3); MEAN CORPUSCULAR HGB CONC 37.4 g/dL (31.7-36.0); MEAN CORPUSCULAR VOLUME 84.6 fL (84.0-98.0); MONOCYTES ABSOLUTE AUTO 1.31 K/uL (0.00-1.00); MONOCYTES PERCENT AUTO 14.5 % (2.0-14.0); NEUTROPHILS ABSOLUTE AUTO 5.64 K/uL (1.40-7.00); NEUTROPHILS PERCENT AUTO 62.6 % (45.0-80.0); PLATELET COUNT,PLT 204 K/uL (150-350); RED BLOOD CELL COUNT 5.21 M/uL (4.33-5.41); RED CELL DISTRIBUTION WIDTH 12.4 % (11.2-14.1)
[2023-12-04] MEDS: Sodium Chloride 0.9% 500 ML IV SCH (07:30)
[2023-12-04 07:50] LABS: ALBUMIN 3.6 g/dL (3.4-5.0); CALCIUM 8.7 mg/dL (8.5-10.1); CARBON DIOXIDE,CO2 30.4 mmol/L (21.0-32.0); CREATININE 0.86 mg/dL (0.51-1.17); EST CRCL DRUG DOSING (CG) 91.21 mL/min; MAGNESIUM 1.2 mg/dL (1.8-2.4); POTASSIUM,K 3.3 mmol/L (3.5-5.1); PROTEIN TOTAL,TP 6.5 g/dL (6.4-8.2)
[2023-12-04 07:58] LABS: ANION GAP 10.9 meq/L (7-15)
[2023-12-04] MEDS: Meclizine 25 MG Tab PO ONE (08:41)
[2023-12-04] MEDS: Sodium Chloride 3% 500 ML IV SCH (08:44)
[2023-12-04] MEDS: Sodium Chloride 3% 500 ML ONE (08:55)
[2023-12-04] MEDS: Magnesium Sulfate/Water Premix 2 GM in Premix Bag 1 BAG IV ONE (08:56)
[2023-12-04] MEDS: Sodium Chloride 0.9% 10 ML Syringe FLUSH PRN (09:00)
[2023-12-04] MEDS: Potassium Bicarbonate/Cit Ac 20 MEQ Effervescent Tab PO ONE ×2 (09:04→11:10)
[2023-12-04] MEDS: Ondansetron 4 MG/2 ML SDV IVPUSH ONE (09:06)
[2023-12-04] MEDS: Sodium Chloride 0.9% 1,000 ML IV ONE (09:09)
[2023-12-04 10:22] LABS: AMPHETAMINES SCREEN, URINE NEGATIVE (NEGATIVE); BARBITURATE SCREEN,URINE NEGATIVE (NEGATIVE); BENZODIAZEPINES SCREEN,URINE NEGATIVE (NEGATIVE); COCAINE METABOLITES,URINE NEGATIVE (NEGATIVE); EDDP,URINE SCREEN NEGATIVE (NEGATIVE); METHAMPHETAMINES SCREEN, URINE NEGATIVE (NEGATIVE); TCA SCREEN,URINE NEGATIVE (NEGATIVE); THC SCREEN,URINE 50 NG/ML NEGATIVE (NEGATIVE)
[2023-12-04 10:23] LABS: BUPRENORPHINE SCREEN,URINE NEGATIVE (NEGATIVE); OXYCODONE SCREEN,URINE POSITIVE (NEGATIVE)
[2023-12-04] MEDS ORDERED: Magnesium Sulfate/Water Premix 2 GM in Premix Bag 1 BAG IV ONE (10:50)
[2023-12-04] MEDS: Acetaminophen/HYDROcodone 325-10 MG Tab PO ONE (11:10)
[2023-12-04] MEDS: Lactated Ringers 1,000 ML IV SCH (11:55)
== END 2023-12-04 12:23 ==
LOC: LL.ED 06:20 → SUPCPDRO 06:20 → LL.ED 12:23
DX: R55 Syncope and collapse (principal); S01.81XA Laceration without foreign body of other part of head, initial encounter; E87.1 Hypo-osmolality and hyponatremia; E83.42 Hypomagnesemia; E87.6 Hypokalemia; R74.01 Elevation of levels of liver transaminase levels; I10 Essential (primary) hypertension; E78.00 Pure hypercholesterolemia, unspecified; K21.9 Gastro-esophageal reflux disease without esophagitis; J44.9 Chronic obstructive pulmonary disease, unspecified; E66.9 Obesity, unspecified; F17.200 Nicotine dependence, unspecified, uncomplicated; Z79.899 Other long term (current) drug therapy; Z79.84 Long term (current) use of oral hypoglycemic drugs; Z88.1 Allergy status to other antibiotic agents; W22.09XA Striking against other stationary object, initial encounter; Y92.002 Bathroom of unspecified non-institutional (private) residence as the place of occurrence of the external cause
CPT/HCPCS: 12011; 36415; 70450; 80053; 80305-QW; 80307; 82947; 83605; 83735; 83880; 84484; 85025; 93005; 93010; 96361; 96365; 96366; 96375; 99284; 99285-25; A9270-GY; J2405; J3475; J3490; J7040; J7120; U0002